=== PATIENT | female | born 1990 | race Two or more races ===

== ENCOUNTER 2021-08-02 08:00 | Outpatient (CLI) | payer OTHER | END 2021-08-02 08:30 | disposition home or self-care (01) | LOC: PPH VACUNA 08:00 | PROVIDERS: ATTEND Emergency Medicine Pediatric Emergency Medicine | DX: Z23 Encounter for immunization (principal) ==

== ENCOUNTER 2021-09-13 08:26 | Outpatient (CLI) | payer OTHER | END 2021-09-13 08:30 | disposition home or self-care (01) | LOC: LAB 08:26 | DX: U07.1 COVID-19 (principal) ==

== ENCOUNTER 2021-12-16 12:06 | Emergency (ER) | payer OTHER ==
[~2021-12-16] VITALS: Ht 157.5 cm; Wt 68.0 kg
== END 2021-12-16 17:54 | disposition home or self-care (01) ==
LOC: ER 12:06
DX: G44.209 Tension-type headache, unspecified, not intractable (principal); G43.919 Migraine, unspecified, intractable, without status migrainosus

== ENCOUNTER 2022-07-15 11:00 | Outpatient (CLI) | payer OTHER | END 2022-07-15 11:05 | disposition home or self-care (01) | LOC: PPH VACUNA 11:00 | PROVIDERS: ATTEND Emergency Medicine Pediatric Emergency Medicine | DX: Z23 Encounter for immunization (principal) ==

== ENCOUNTER 2024-10-10 11:22 | Emergency (ER) | payer OTHER ==
[~2024-10-10] VITALS: Ht 157.5 cm; Wt 72.6 kg
[2024-10-10] MEDS ORDERED: GUAIFENESIN/DEXTROMETHORPHAN 10ML BLIST.PACK PO ONE ×2 (12:45→14:19)
[2024-10-10] MEDS ORDERED: ACETAMINOPHEN 500 MG GEL..CAP PO ONE ×2 (12:45→14:18)
[2024-10-10 14:38] LABS: HEMATOCRIT 33.1 % (36.0-45.00); HEMOGLOBIN 10.7 g/dL (12.0-15.00); MEAN CELL VOLUME 76.6 fL (80.00-100.00); MEAN CORPUSCULAR HEMOGLOBIN 24.9 pg (27.00-32.0); MEAN CORPUSCULAR HGB CONC 32.5 g/dl (32.0-36.0); PLATELET COUNT 213 K/uL (150-450); RED BLOOD COUNT 4.32 M/uL (4.00-6.00); RED CELL DISTRIBUTION WIDTH 15.8 % (11.5-14.5)
[2024-10-10 15:03] LABS: CALCIUM 8.9 mg/dL (8.5-10.1); CREATININE SERUM 0.65 mg/dL (0.55-1.02); GFR 104.34; POTASSIUM 3.43 mEq/L (3.5-5.1)
[2024-10-10] MEDS ORDERED: BENZONATATE 100 MG CAPSULE PO ONE (16:45)
[2024-10-10] MEDS ORDERED: AZITHROMYCIN 500 MG VIAL IV ONE ×2 (16:45→16:48)
[2024-10-10] MEDS ORDERED: METHYLPREDNISOLONE SOD SUCC 125 MG VIAL IV STA (19:14)
[2024-10-10] MEDS ORDERED: CEFTRIAXONE SODIUM 2,000 MG VIAL IV STA (19:33)
[2024-10-10] MEDS ORDERED: METHYLPREDNISOLONE SOD SUCC 125 MG VIAL ONE (19:36)
[2024-10-10] MEDS ORDERED: CEFTRIAXONE SODIUM 2,000 MG VIAL ONE (19:36)
== END 2024-10-10 19:49 | disposition home or self-care (01) ==
LOC: ER 11:24
PROVIDERS: Emergency Medicine
DX: J18.9 Pneumonia, unspecified organism (principal); Z20.822 Contact with and (suspected) exposure to COVID-19

== ENCOUNTER 2024-10-10 17:08 | Outpatient (CLI) | payer OTHER | END 2024-10-10 17:11 | disposition home or self-care (01) | LOC: LAB 17:08 | PROVIDERS: ATTEND Emergency Medicine | DX: A49.3 Mycoplasma infection, unspecified site (principal) ==